=== PATIENT | female | born 2000 | race Two or more races ===

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

== ENCOUNTER 2020-08-17 23:06 | Emergency (ER) | payer MEDICAID ==
[~2020-08-17] VITALS: Ht 154.9 cm; Wt 46.7 kg
[2020-08-17 23:40] VITALS: BP 113/73
== END 2020-08-17 23:52 | disposition home or self-care (01) ==
LOC: ER 23:06
DX: R11.2 Nausea with vomiting, unspecified (principal); Z87.440 Personal history of urinary (tract) infections

== ENCOUNTER 2021-04-12 22:30 | Emergency (ER) | payer MEDICAID ==
[~2021-04-12] VITALS: Ht 154.9 cm; Wt 49.9 kg
[2021-04-12] MEDS ORDERED: DexAMETHasone 0.5MG/5ML ORAL ELIX PO ONE (22:45)
[2021-04-12] MEDS ORDERED: diphenhdrAMINE HCL 25 MG CAP PO ONE (22:45)
[2021-04-12] MEDS ORDERED: diphenhdrAMINE HCL 50 MG/1 ML VL IV ONE (22:45)
[2021-04-12] MEDS ORDERED: FAMOTIDINE 20 MG TAB PO ONE (22:45)
[2021-04-12] MEDS ORDERED: FAMOTIDINE (10MG/ML) 2ML VL IV ONE (22:45)
[2021-04-12] MEDS ORDERED: DexAMETHasone SOD PHOS 10MG/1ML VIAL INJ IV ONE (22:45)
[2021-04-12] MEDS ORDERED: SODIUM CHLORIDE 0.9% 1,000 ML IV ONE (22:45)
[2021-04-13 01:45] VITALS: BP 105/74
== END 2021-04-13 01:47 | disposition home or self-care (01) ==
LOC: ER 22:30
DX: T78.40XA Allergy, unspecified, initial encounter (principal); Y92.89 Other specified places as the place of occurrence of the external cause
CPT/HCPCS: 96361; 96374; 96375; 99284; J1100; J1200; J3490; J7030

== ENCOUNTER 2021-04-14 13:51 | Emergency (ER) | payer MEDICAID ==
[~2021-04-14] VITALS: Ht 154.9 cm; Wt 49.9 kg
[2021-04-14] MEDS ORDERED: SODIUM CHLORIDE 0.9% 1,000 ML IV ONE (14:00)
[2021-04-14] MEDS ORDERED: EPINEPHrine HCL 1 MG/1 ML AMP SC ONE (14:00)
[2021-04-14] MEDS ORDERED: diphenhdrAMINE HCL 50 MG/1 ML VL IV ONE (14:00)
[2021-04-14] MEDS ORDERED: methylPREDNISolone SOD SUCC 125 MG/2 ML VL IV ONE (14:00)
[2021-04-14 14:28] LABS: Basophils # (auto) 0.1 10 ^3/uL (0-0.2); Basophils % (auto) 0.6 % (0.0-2.0); Eosinophils # (auto) 0 10 ^3/uL (0-0.8); Eosinophils % (auto) 0.4 % (0.0-7.0); Hematocrit 44.2 % (36.0-46.0); Hemoglobin 14.4 g/dL (12.2-16.2); Lymphocytes # (auto) 3.2 10 ^3/uL (0.4-5.4); Lymphocytes % (auto) 24.8 % (10.0-50.0); Mean Corpuscular Hemoglobin 28.5 pg (28.0-32.0); Mean Corpuscular Hgb Conc. 32.6 g/dL (32.0-36.0); Mean Corpuscular Volume 87.2 fL (80.0-100.0); Monocytes # (auto) 0.7 10 ^3/uL (0-1.3); Monocytes % (auto) 5.5 % (0.0-12.0); Neutrophils # (auto) 8.9 10 ^3/uL (1.6-8.6); Neutrophils % (auto) 68.7 % (37.0-80.0); Nucleated Red Blood Cells % 0.1 %; Red Blood Cells 5.07 10^6/uL (4.0-5.20); Red Cell Distribution Width 13.4 % (11.8-14.3); White Blood Cell 12.9 10^3/uL (4.4-10.8)
[2021-04-14 14:35] LABS: Urine Bacteria FEW /hpf (None Seen); Urine Blood Negative /uL (Negative); Urine Mucus FEW (None Seen); Urine WBC 9 /hpf (0 - 5)
[2021-04-14 14:51] LABS: Albumin 3.4 g/dL (3.4-5.0); Calcium 8.9 mg/dL (8.5-10.1)
[2021-04-14 14:55] LABS: BUN/Creatinine Ratio 14.7; Bilirubin, Total 0.4 mg/dL (0.2-1.0); Total Protein 7.3 g/dL (6.4-8.2)
[2021-04-14 15:45] VITALS: BP 118/58
== END 2021-04-14 15:48 | disposition home or self-care (01) ==
LOC: ER 13:51
DX: L50.0 Allergic urticaria (principal); Z87.440 Personal history of urinary (tract) infections
CPT/HCPCS: 36415; 80053; 81001; 81025; 85025; 96372; 96374; 96375; 99284; J0171; J1200; J2930

== ENCOUNTER 2021-07-17 08:16 | Emergency (ER) | payer MEDICAID ==
[~2021-07-17] VITALS: Ht 154.9 cm; Wt 48.5 kg
[2021-07-17 09:01] LABS: Urine Bacteria FEW /hpf (None Seen); Urine Blood 1+ /uL (Negative); Urine Mucus FEW (None Seen); Urine WBC 169 /hpf (0 - 5); Urine WBC Clumps PRESENT /hpf (None Seen)
[2021-07-17 09:32] LABS: Basophils # (auto) 0.1 10 ^3/uL (0-0.2); Basophils % (auto) 0.3 % (0.0-2.0); Eosinophils # (auto) 0 10 ^3/uL (0-0.8); Hemoglobin 12.8 g/dL (12.2-16.2); Lymphocytes # (auto) 0.5 10 ^3/uL (0.4-5.4); Lymphocytes % (auto) 2.5 % (10.0-50.0); Mean Corpuscular Hemoglobin 29.2 pg (28.0-32.0); Mean Corpuscular Hgb Conc. 33.8 g/dL (32.0-36.0); Mean Corpuscular Volume 86.3 fL (80.0-100.0); Monocytes # (auto) 1.9 10 ^3/uL (0-1.3); Monocytes % (auto) 9.3 % (0.0-12.0); Neutrophils # (auto) 17.9 10 ^3/uL (1.6-8.6); Neutrophils % (auto) 87.9 % (37.0-80.0); Red Cell Distribution Width 13.7 % (11.8-14.3); White Blood Cell 20.4 10^3/uL (4.4-10.8)
[2021-07-17 09:50] LABS: Albumin 3.2 g/dL (3.4-5.0); Calcium 8.9 mg/dL (8.5-10.1); Potassium 3.5 mmol/L (3.5-5.1)
[2021-07-17 09:53] LABS: Bilirubin, Total 0.4 mg/dL (0.2-1.0); Total Protein 6.8 g/dL (6.4-8.2)
[2021-07-17] MEDS ORDERED: LEVO500T31 PO (10:14)
[2021-07-17] MEDS ORDERED: PERCOT PO (10:14)
[2021-07-17] MEDS ORDERED: SODIUM CHLORIDE 0.9% 1,000 ML IV ONE (10:15)
[2021-07-17] MEDS ORDERED: ONDANSETRON HCL 4 MG/2 ML VIAL IV ONE (10:15)
[2021-07-17] MEDS ORDERED: cefTRIAXone 1GM/50ML D5W 50 ML IV ONE (10:15)
[2021-07-17] MEDS ORDERED: OXYCODONE W/ ACETAMINOPHEN 5/325MG TABLET PO ONE (13:00)
[2021-07-17 13:16] VITALS: BP 112/55
== END 2021-07-17 13:17 | disposition home or self-care (01) ==
LOC: ER 08:16
DX: N39.0 Urinary tract infection, site not specified (principal); N10 Acute pyelonephritis; R11.2 Nausea with vomiting, unspecified
CPT/HCPCS: 36415; 74176; 80053; 81001; 83690; 85025; 96365; 96375; 99284; J0696; J2405; J7030

== ENCOUNTER 2021-12-17 10:51 | Emergency (ER) | payer MEDICAID ==
[~2021-12-17] VITALS: Ht 157.5 cm; Wt 48.1 kg
[~2021-12-17 10:51] MED LIST: LEVO500T31 PO; PERCOT PO
[2021-12-17 12:06] VITALS: BP 134/64
[2021-12-17] MEDS ORDERED: ACETAMINOPHEN 325 MG TAB PO ONE (12:15)
[2021-12-17] MEDS ORDERED: IBUP800T27 PO (12:40)
== END 2021-12-17 13:02 | disposition home or self-care (01) ==
LOC: ER 10:51
DX: S63.502A Unspecified sprain of left wrist, initial encounter (principal); S62.665A Nondisplaced fracture of distal phalanx of left ring finger, initial encounter for closed fracture; V86.56XA Driver of dirt bike or motor/cross bike injured in nontraffic accident, initial encounter; Y93.89 Activity, other specified; Y92.410 Unspecified street and highway as the place of occurrence of the external cause; Y99.8 Other external cause status
CPT/HCPCS: 29125; 29130; 73110; 73130

== ENCOUNTER 2024-12-11 18:31 | Emergency (ER) | payer MEDICAID ==
[~2024-12-11] VITALS: Ht 157.5 cm; Wt 54.5 kg
[~2024-12-11 18:31] MED LIST changes: +IBUP-1456 PO
--- NOTE | 2024-12-11 18:52 | ED.PDOC ---
History of Present Illness HPI Comments 24-year-old female who came to ER for wound check. Patient denies any medical problems. States about a week ago, [place] when she accidentally bruised/ injuured her right ankle, causing a wound over it. Never had the wound check up. For the past few days, patient has been having flu-like symptoms, fever, chills, diaphoresis, headaches,, weakness, lightheadedness, abdominal pain, nausea and vomiting. Upon arrival patient was tachycardic. Chief Complaint: Wound Check Time Seen by MD: 18:52 Primary Care Provider: JERONIMO Reviewed Notes: Skein Yarn Dyer Notes Allergies: Coded Allergies: NO KNOWN ALLERGIES (Unverified , 12/05/15) Home Meds Active Scripts Mupirocin Calcium (Topical) (MUPIROCIN) 2 % Cre, 2 % EX TID for 10 Days, #120 CRE Prov:CHA JAMES MD 12/11/24 Ondansetron HCl (Ondansetron Hydrochloride) 8 Mg Tab, 8 MG PO Q6HP PRN, #30 TAB Prov:CHA JAMES MD 12/11/24 Ibuprofen (Ibuprofen) 800 Mg Tab, 1 TAB PO TID PRN, #30 TAB 0 Refills Prov:SUSIE TORRES 12/17/21 Oxycodone W/ Acetaminophen (Percocet 5/325MG) 1 Tab Tb, 1 TAB PO BID for 10 Days, #20 TAB Prov:JORGE ZAVALETA MD 07/17/21 Levofloxacin (Levaquin) 500 Mg Tab, 500 MG PO DAILY for 7 Days, #7 TAB Prov:JORGE ZAVALETA MD 07/17/21 Information Source: Patient Mode of Arrival: EMS Severity: Moderate Timing: Days Duration: Since onset Past Medical History PAST MEDICAL HISTORY: Denies Surgical History: Denies all surgeries KOSHER BUTCHER History: No Pertinent KOSHER BUTCHER History Family History Family History: Reviewed,noncontributory to illness Social History Smoker: Non-Smoker Alcohol: Denies ETOH Use Drugs: Denies Drug Use Lives In: Home Constitutional: reports: chills, diaphoresis, fatigue, fever, malaise, weakness ; denies: sweats, others EENTM: denies: blurred vision, double vision, ear bleeding, ear discharge, ear drainage, ear pain, ear ringing, eye pain, eye redness, hearing loss, mouth pain, mouth swelling, nasal discharge, nose bleeding, nose congestion, nose pain, photophobia, tearing, throat pain, throat swelling, voice changes, others Respiratory: denies: cough, hemoptysis, orthopnea, SOB at rest, shortness of breath, SOB with excertion, stridor, wheezing, others Cardiovascular: denies: chest pain, dizzy spells, diaphoresis, Dyspnea on exertion, edema, irregular heart beat, left arm pain, lightheadedness, palpitations, PND, syncope, others Gastrointestinal: reports: abdominal pain, nausea, vomiting; denies: abdomen distended, blood streaked bowels, constipated, diarrhea, dysphagia, difficulty swallowing, hematemesis, melena, poor appetite, poor fluid intake, rectal bleeding, rectal pain, others Genitourinary: denies: abnormal vagina bleeding, burning, dyspareunia, dysuria, flank pain, frequency, hematuria, incontinence, pain, , vagina disc harge, urgency, others Neurological: denies: dizziness, fainting, headache, left sided numbness, left sided weakness, numbness, paresthesia, pre-existing deficit, right sided numbness, right sided weakness, seizure, speech problems, tingling, tremors, weakness, others Musculoskeletal: denies: back pain, gout, joint pain, joint swelling, muscle pain, muscle stiffness, neck pain, others Integumetry: reports: wounds (Right ankle); denies: bruises, change in color, change in hair/nails, dryness, laceration, lesions, lumps, rash, others Allergic/Immunocompromised: denies: Difficulty Healing, Frequent Infections, Hives, Itching, others Hematologic/Lymphatic: denies: anemia, blood clots, easy bleeding, easy bruising, swollen glands, others Endocrine: denies: excessive hunger, excessive sweating, excessive thirst, excessive urination, flushing, intolerance to cold, intolerance to heat, unexplained weight gain, unexplained weight loss, others Psychiatric: denies: anxiety, bipolar disorder, depression, hopeless, panic disorder, schizophrenia, sleepless, suicidal, others Physical Exam General Appearance: No Apparent Distress, Normal HEENT: Normal ENT Inspection, Pharynx Normal, TMs Normal Neck: Full Range of Motion, Non-Tender, Normal, Normal Inspection Respiratory: Chest Non-Tender, Lungs Clear, No Accessory Muscle Use, No Respiratory Distress, Normal Breath Sounds Cardiovascular: No Edema, No JVD, No Murmur, No Gallop, Normal Peripheral Pulses, Regular Rate/Rhythm Breast Exam: Deferred Gastrointestinal: No Organomegaly, Non Tender, No Pulsatile Mass, Normal Bowel Sounds, Soft Genitalia: Deferred Pelvic: Deferred Rectal: Deferred Extremities: No calf tenderness, Normal capillary refill, Normal inspection, Normal range of motion, Non-tender, No pedal edema Musculoskeletal : Apperance: Normal Neurologic: Alert, airfield operations specialist II-XII nml as Tested, No Motor Deficits, Normal Affect, Normal Mood, No Sensory Deficits Cerebellar Function: Normal Reflexes: Normal Skin: Dry, Normal Color, Warm Lymphatic: No Adenopathy Was a procedure done? Was a procedure done?: No Differential Dx Considerations may include: Sepsis, cellulitis, infected wound, gastroenteritis X-Ray, Labs, Meds, VS Vital Signs Date Time Temp Pulse Resp B/P (MAP) Pulse Ox O2 Delivery O2 Flow Rate FiO2 12/11/24 21:30 98.6 58 13 128/74 (92) 100 98.6 12/11/24 19:09 98 19 99 Room Air* 0 21 12/11/24 19:08 98.1 98 19 127/89 (102) 100 98.1 12/11/24 18:45 98.7 102 26 160/115 (130) 98 98.7 Lab Test 12/11/24 19:00 Range/Units White Blood Count 6.5 4.4-10.8 10^3/uL Red Blood Count 4.57 4.0-5.20 10^6/uL Hemoglobin 14.7 12.2-16.2 g/dL Hematocrit 42.5 36.0-46.0 % Mean Corpuscular Volume 93.0 80.0-100.0 fL Mean Corpuscular Hemoglobin 32.2 H 28.0-32.0 pg Mean Corpuscular Hemoglobin Concent 34.7 32.0-36.0 g/dL Red Cell Distribution Width 13.5 11.8-14.3 % Platelet Count 261 140-450 10^3/uL Mean Platelet Volume 7.4 6.9-10.8 fL Neutrophils (%) (Auto) 68.5 37.0-80.0 % Lymphocytes (%) (Auto) 18.7 10.0-50.0 % Monocytes (%) (Auto) 10.7 0.0-12.0 % Eosinophils (%) (Auto) 1.6 0.0-7.0 % Basophils (%) (Auto) 0.5 0.0-2.0 % Neutrophils # (Auto) 4.5 1.6-8.6 10 ^3/uL Lymphocytes # (Auto) 1.2 0.4-5.4 10 ^3/uL Monocytes # (Auto) 0.7 0-1.3 10 ^3/uL Eosinophils # (Auto) 0.1 0-0.8 10 ^3/uL Basophils # (Auto) 0 0-0.2 10 ^3/uL Nucleated Red Blood Cells 0.1 % Sodium Level 137 136-145 mmol/L Potassium Level 3.7 3.5-5.1 mmol/L Chloride Level 101 98-107 mmol/L Carbon Dioxide Level 21 20-31 mmol/L Anion Gap 15 5-15 Blood Urea Nitrogen 8 L 9-23 mg/dL Creatinine 0.75 0.550-1.02 mg/dL Glomerular Filtration Rate Calc 114 >90 mL/min BUN/Creatinine Ratio 10.7 10.0-20.0 Serum Glucose 87 74-106 mg/dL Lactic Acid Level 1.1 0.4-2.0 mmol/L Calcium Level 9.4 8.7-10.4 mg/dL Total Bilirubin 1.2 H 0.2-1.0 mg/dL Aspartate Amino Transferase (AST) 138 H 13-40 U/L Alanine Aminotransferase (ALT) 106 H 7-40 U/L Alkaline Phosphatase 133 H 46-116 U/L Total Protein 8.0 5.7-8.2 g/dL Albumin 4.5 3.2-4.8 g/dL Beta HCG, Quantitative 0.5 L 1.5-4.2 mIU/mL Current Medications Medications (Trade) Dose Ordered Sig/Alberto Route Start Time Stop Time Status Last Admin Ondansetron HCl (Zofran) 4 mg ONCE ONCE IV 12/11/24 19:00 12/11/24 19:01 DC 12/11/24 19:08 Sodium Chloride 1,000 ml @ 1,000 mls/hr Q1H ONCE IVB 12/11/24 19:00 12/11/24 19:59 DC 12/11/24 19:06 PROCEDURE(s): GBUS - GALLBLADDER INDICATION: abd pain, vomiting, elevated LFTs TECHNIQUE: Multiple real-time sonographic images of the abdomen were obtained. COMPARISON: None FINDINGS: The liver is homogenous in echogenicity. The liver measures 16.23 cm. No intrahepatic biliary ductal dilatation is noted. The gallbladder wall measures 0.17 cm and is unremarkable. No gallstones or sludge is seen. The common duct measures 0.3 1 cm and is unremarkable. No pericholecystic fluid is noted. The right kidney measures 10.9 cm. No hydronephrosis. The pancreas is not well visualized due to obscuration from bowel gas. IMPRESSION: 1. Liver measures 16.2 cm in length. 2. Gallbladder is normal 3. Right kidney measures 10.9 cm and there is no hydronephrosis. PROCEDURE(s): RANK2 - R ANKLE 2 VIEW XRAY CLINICAL INDICATION: pain injury TECHNIQUE: 2 radiographic views of the right ankle were obtained. Comparison: None FINDINGS/IMPRESSION: There is no evidence of acute fracture or dislocation. The visualized joint space is well maintained. The alignment is anatomical. There is no radiopaque foreign body. Time of 1ST Reevaluation: 18:48 Reevaluation 1ST: Unchanged Patient Education/Counseling: Diagnosis, Treatment Family Education/Counseling: No Family Present Departure 1 Departure Time of Disposition: 20:30 Impression: Primary Impression: Abrasion, right ankle, initial encounter Additional Impressions: Transaminitis Nausea and vomiting Disposition: 01 HOME / SELF CARE / HOMELESS Condition: Stable e-Prescriptions Mupirocin Calcium (Topical) (MUPIROCIN) 2 % Cre 2 % EX TID for 10 Days, #120 CRE Prov: CHA JAMES MD 12/11/24 Ondansetron HCl (Ondansetron Hydrochloride) 8 Mg Tab 8 MG PO Q6HP PRN, #30 TAB Prov: CHA JAEMS MD 12/11/24 Discharged With: Self Critical Care Note Critical Care Time?: No Stability Stability form required: No Heart Score Heart Score: Heart Score Response (Comments) Value History N/A 0 EKG N/A 0 Age N/A 0 Risk Factors N/A 0 Troponin N/A 0 Total 0 I personally scribed for CHA JAMES MD ([email or web address]) on 12/11/24 at 18:52. Electronically submitted by Abram Luevano ([email or web address]). I personally scribed for CHA JAMES MD ([email or web address]) on 12/11/24 at 21:22. Electronically submitted by Abram Luevano ([email or web address]). CHA JAMES MD December 11, 2024 18:52
[2024-12-11] MEDS: SODIUM CHLORIDE 0.9% 1,000 ML IVB ONE (19:06)
[2024-12-11] MEDS: ONDANSETRON HCL 4 MG/2 ML VIAL IV ONE (19:08)
[2024-12-11 19:09] VITALS: PULSE 98; RESP 19; O2SAT 99
[2024-12-11 19:18] LABS: Basophils # (auto) 0 10 ^3/uL (0-0.2); Basophils % (auto) 0.5 % (0.0-2.0); Eosinophils # (auto) 0.1 10 ^3/uL (0-0.8); Eosinophils % (auto) 1.6 % (0.0-7.0); Hematocrit 42.5 % (36.0-46.0); Hemoglobin 14.7 g/dL (12.2-16.2); Lymphocytes # (auto) 1.2 10 ^3/uL (0.4-5.4); Lymphocytes % (auto) 18.7 % (10.0-50.0); Mean Corpuscular Hemoglobin 32.2 pg (28.0-32.0); Mean Corpuscular Hgb Conc. 34.7 g/dL (32.0-36.0); Monocytes # (auto) 0.7 10 ^3/uL (0-1.3); Monocytes % (auto) 10.7 % (0.0-12.0); Neutrophils # (auto) 4.5 10 ^3/uL (1.6-8.6); Neutrophils % (auto) 68.5 % (37.0-80.0); Nucleated Red Blood Cells % 0.1 %; Platelet Count (auto) 261 10^3/uL (140-450); Red Blood Cells 4.57 10^6/uL (4.0-5.20); Red Cell Distribution Width 13.5 % (11.8-14.3); White Blood Cell 6.5 10^3/uL (4.4-10.8)
[2024-12-11 19:32] LABS: Albumin 4.5 g/dL (3.2-4.8); Anion Gap 15 (5-15); BUN/Creatinine Ratio 10.7 (10.0-20.0); Calcium 9.4 mg/dL (8.7-10.4); Carbon Dioxide 21 mmol/L (20-31); Chloride 101 mmol/L (98-107); Glucose 87 mg/dL (74-106); Potassium 3.7 mmol/L (3.5-5.1); Sodium 137 mmol/L (136-145)
[2024-12-11 19:33] LABS: Alanine Aminotransferase 106 U/L (7-40); Alkaline Phosphatase 133 U/L (46-116); Aspartate Aminotransferase 138 U/L (13-40); Bilirubin, Total 1.2 mg/dL (0.2-1.0); Blood Urea Nitrogen 8 mg/dL (9-23)
--- NOTE | 2024-12-11 20:37 | DVH ---
CLINICAL INDICATION: pain injury TECHNIQUE: 2 radiographic views of the right ankle were obtained. Comparison: None FINDINGS/IMPRESSION: There is no evidence of acute fracture or dislocation. The visualized joint space is well maintained. The alignment is anatomical. There is no radiopaque foreign body.
--- NOTE | 2024-12-11 21:11 | DVH ---
INDICATION: abd pain, vomiting, elevated LFTs TECHNIQUE: Multiple real-time sonographic images of the abdomen were obtained. COMPARISON: None FINDINGS: The liver is homogenous in echogenicity. The liver measures 16.23 cm. No intrahepatic bili jos ductal dilatation is noted. The gallbladder wall measures 0.17 cm and is unremarkable. No gallstones or sludge is seen. The co mmon duct measures 0.3 1 cm and is unremarkable. No pericholecystic fluid is noted. The right kidney measures 10.9 cm. No hydronephrosis. The pancreas is not well visualized due to obscuration from bowel gas. IMPRESSION: 1. Liver measures 16.2 cm in length. 2. Gallbladder is normal 3. Right kidney measures 10.9 cm and there is no hydronephrosis.
[2024-12-11] MEDS ORDERED: MUPI2CRE17 EX (21:26)
[2024-12-11] MEDS ORDERED: ONDA-180 PO (21:26)
[2024-12-11 21:30] VITALS: BP 128/74; PULSE 58; RESP 13; TEMP 98.6; O2SAT 100
== END 2024-12-11 22:08 | disposition home or self-care (01) ==
LOC: EDBD 18:31 → ER 18:31
DX: S90.511A Abrasion, right ankle, initial encounter (principal); R74.01 Elevation of levels of liver transaminase levels; R10.2 Pelvic and perineal pain; Z79.899 Other long term (current) drug therapy; Y33.XXXA Other specified events, undetermined intent, initial encounter; Y93.89 Activity, other specified; Y92.89 Other specified places as the place of occurrence of the external cause; Y99.8 Other external cause status
CPT/HCPCS: 36415; 73600; 76705; 80053; 83605; 84702; 85025; 87040; 96374; 99285; J2405; J7030